=== PATIENT | female | born 1985 | race Caucasian/White ===

== ENCOUNTER 2016-03-01 10:45 | Emergency (ER) | payer OTHER ==
[2016-03-01 10:53] VITALS: BP 138/83
--- NOTE | 2016-03-01 11:04 | ERNOTE ---
ENT HPI Date of Service: 03/01/16 Presenting Symptoms: dental pain Source: patient - Immun/Allergies/Home Medications Immunizations: IMMUNIZATION HX Immunizations Up to Date Yes History of Influenza Vaccine Yes Hx Pneumococcal Vaccination No Allergies/Adverse Reactions: Allergies Allergy/AdvReac Type Severity Reaction Status Date / Time No Known Allergies Allergy Verified 03/01/16 10:53 Home Medications: HOME MEDICATIONS Acetaminophen [Tylenol] 650 mg PO QID PRN #0 tablet 10/09/15 [Last Taken Unknown ] Lamotrigine [Lamictal] 200 mg PO BID #60 tablet 10/09/15 [Last Taken Unknown] risperiDONE [Risperdal] 2 mg PO HS #30 tablet 10/09/15 [Last Taken Unknown] Clindamycin HCl [Cleocin HCl] 300 mg PO QID #30 capsule 03/01/16 [Last Taken Unknown] HYDROcodone/ACETAMINOPHEN [Nakina 5-325] 1 tab PO Q6H PRN #20 tab 03/01/16 [Last Taken Unknown] - History of Present Illness Narrative: pt presents with pain and swelling to the R side of her face, submandibular area , steadily worsening over the past week. She sts that she is scheduled to have her back upper molar removed next week in [place]. Pt had a MRSA infection a month ago. No fever or chills Severity: Present: moderate ENT Location: Present: dental Prearrival Treatment: Present: over the counter meds - ibuprofen Modifying Factors - Improves: Denies: lying down Modifying Factors - Worsens: Reports: lying down Associated Symptoms - ENT: Reports: sore throat, facial pain/swelling, jaw swelling Prior Treament: Reports: recently seen. Denies: currently on antibiotics Review of Systems - Review of Systems Constitutional: Present: no symptoms reported EYE: Present: no symptoms reported ENT: Present: ear pain, sore throat Respiratory: Present: no symptoms reported Cardiology: Present: no symptoms reported Gastrointestinal/Abdominal: Present: no symptoms reported Genitourinary: Present: no symptoms reported Musculoskeletal: Present: no symptoms reported Skin: Present: no symptoms reported Neurological: Present: no symptoms reported Endocrine: Present: no symptoms reported Hematologic/Lymphatic: Present: no symptoms reported Psych: Present: no symptoms reported All Other Systems: All systems neg except as marked - Patient's Past Medical History Patient History - Medical: Anemia, Bipolar, UTI'S, Other Patient History - Cardiac/Respiratory: No pertinent hx Patient History - Cancer: Cervical Patient History - Surgical Procedures: Other - Family History Father Family History - Medical: GERD Grandfather-Maternal Family History - Cardiac/Respiratory: Coronary Heart Disease, CVA/Stroke, Myocardial Infarction Family History - Cancer: Other - cancer Grandmother-Maternal Family History - Medical: Depression Family History - Cancer: Lung Mother Family History - Medical: Depression - Social History Living Situations: home Does anyone smoke in the home?: Yes Smoking Status: Current every day smoker Alcohol Use: none Drug Use: marijuana Physical Exam - Physical Exam General Appearance: Present: alert, mild distress Eye Exam: Normal inspection: bilateral Ears, Nose, Throat: Present: normal pharynx, other - 2 back molars on the R tender to palpation. Mild gum swelling noted. moderate R facial swelling and submandibular adenopathy. Absent: abnormal TM (R) - normal TM, abnormal TM (L) - normal TM Neck: Present: normal inspection, lymphadenopathy (R) Respiratory: Present: no respiratory distress Cardiovascular/Chest: Present: regular rate, rhythm Gastrointestinal/Abdominal: Present: normal bowel sounds Back Exam: Present: normal inspection Extremity Exam: Present: normal inspection Neurological Exam: Present: alert, oriented Skin Exam: Present: normal color ED Progress - Vital Signs Patient's Vital Signs:: I have reviewed the patient's vital signs. Vital Signs: Vital Signs 03/01/16 10:47 Temperature 97.3 C H Pulse Rate 90 Respiratory 12 Rate Blood Pressure 138/83 O2 Sat by Pulse 100 Oximetry - Progress/Reassessment Chief Complaint: Dental Problem Plan - Plan Plan: clindamycin and norco. f/u with oral surgeon in [place] Departure Clinical Impression: Dental abscess - Departure Disposition: Home self-care Condition: Good Referrals: Nick Rodas MD [Primary Care Provider] - Prescriptions: Clindamycin HCl [Cleocin HCl] 300 mg PO QID #30 capsule HYDROcodone/ACETAMINOPHEN [Nakina 5-325] 1 tab PO Q6H PRN #20 tab PRN Reason: Pain
== END 2016-03-01 11:39 | disposition home or self-care (01) ==
LOC: ER 10:45
DX: K04.7 Periapical abscess without sinus (principal); F31.9 Bipolar disorder, unspecified; Z85.41 Personal history of malignant neoplasm of cervix uteri; F17.210 Nicotine dependence, cigarettes, uncomplicated; Z86.14 Personal history of Methicillin resistant Staphylococcus aureus infection

== ENCOUNTER 2016-03-10 07:20 | Emergency (ER) | payer OTHER ==
[2016-03-10] MEDS ORDERED: PROMETHAZINE HCL 50 MG/ML AMPUL IM ONE ×2 (07:30→07:32)
[2016-03-10] MEDS ORDERED: KETOROLAC TROMETHAMINE 60 MG/2 ML VIAL IM ONE ×2 (07:30→07:32)
--- NOTE | 2016-03-10 07:39 | ERNOTE ---
<Maggie Gonzalez - Last Filed: 03/10/16 08:03> Headache ER HPI - General Presenting Symptoms: headache Time Seen by Provider: 03/10/16 07:22 Source: patient Exam Limitations: no limitations - Immun/Allergies/Home Medications Immunizations: IMMUNIZATION HX Immunizations Up to Date Yes History of Influenza Vaccine Yes Hx Pneumococcal Vaccination No Allergies/Adverse Reactions: Allergies No Known Allergies Allergy (Verified 03/01/16 10:53) Home Medications: HOME MEDICATIONS Acetaminophen [Tylenol] 650 mg PO QID PRN #0 tablet 10/09/15 [Last Taken Unknown ] Lamotrigine [Lamictal] 200 mg PO BID #60 tablet 10/09/15 [Last Taken Unknown] risperiDONE [Risperdal] 2 mg PO HS #30 tablet 10/09/15 [Last Taken Unknown] Clindamycin HCl [Cleocin HCl] 300 mg PO QID #30 capsule 03/01/16 [Last Taken Unknown] HYDROcodone/ACETAMINOPHEN [Floyd 5-325] 1 tab PO Q6H PRN #20 tab 03/01/16 [Last Taken Unknown] Cyclobenzaprine HCl [Flexeril] 10 mg PO TID PRN #30 tab 03/10/16 [Last Taken Unknown] Naproxen [Naprosyn] 500 mg PO BID #60 tablet 03/10/16 [Last Taken Unknown] Ondansetron [Zofran Odt] 4 mg PO Q6H PRN #20 tab 03/10/16 [Last Taken Unknown] - History of Present Illness Narrative: Patient has had a mild headache for a couple of days. This morning she woke up with a severe headache and immediately came to the ER. She has no prior history of headaches, denies any head trauma. She is nauseated, but has no vomiting and denies any other symptoms. The pain is mainly in the frontal area, denies any URI symptoms Date (Duration): 03/10/16 Time (Timing): 07:30 Timing of Headache: constant Context Headache: Present: new onset. Absent: recent head injury < 24 hrs ago, recent head injury > 24 hrs Severity Maximum: Present: severe Severity-Currently: Present: severe Headache frequency: Present: no recent headache Modifying Factors - (Worsens): Reports: movement, exposure to light Associated Symptoms: Reports: denies symptoms, nausea. Denies: fever/chills, vomiting, nasal congestion, nasal drainage, numbness/tingling, vision changes, light-headedness, loss of consciousness, neck pain/stiffness Review of Systems - Review of Systems Constitutional: Present: recent illness - was recently seen for tooth infection , still on antibiotics. Absent: fever EYE: Absent: vision changes ENT: Absent: nose congestion, nasal drainage, sore throat Respiratory: Absent: shortness of breath, cough Cardiology: Absent: chest pain Gastrointestinal/Abdominal: Present: See HPI, nausea. Absent: diarrhea, abdominal pain Genitourinary: Present: no symptoms reported Musculoskeletal: Absent: muscle stiffness, neck pain Neurological: Present: See HPI, headache. Absent: numbness - Patient's Past Medical History Patient History - Medical: Anemia, Bipolar, UTI'S, Other Patient History - Cardiac/Respiratory: No pertinent hx Patient History - Cancer: Cervical Patient History - Surgical Procedures: Other - Family History Father Family History - Medical: GERD Grandfather-Maternal Family History - Cardiac/Respiratory: Coronary Heart Disease, CVA/Stroke, Myocardial Infarction Family History - Cancer: Other - cancer Grandmother-Maternal Family History - Medical: Depression Family History - Cancer: Lung Mother Family History - Medical: Depression - Social History Living Situations: home Does anyone smoke in the home?: Yes Smoking Status: Current every day smoker Cigarettes Packs Per Day: 0.5 Have you smoked in the past 12 months: Yes Alcohol Use: none Drug Use: marijuana Physical Exam - Physical Exam General Appearance: Present: wd/wn, alert, severe distress - crying, very dramatic, anxious Eye Exam: Normal inspection: bilateral, PERRL: bilateral Ears, Nose, Throat: Present: normal ENT inspection, normal pharynx Neck: Present: normal inspection, nontender, supple, full range of motion. Absent: lymphadenopathy (L), tender posterior midline Respiratory: Present: no respiratory distress, normal breath sounds, no accessory muscle use, lungs clear Cardiovascular/Chest: Present: regular rate, rhythm, no murmur Gastrointestinal/Abdominal: Present: nontender, nondistended, soft Neurological Exam: Present: alert, oriented, no motor/sensory deficits, web design intern II- XII nml as tested Skin Exam: Present: normal color, warm/dry ED Progress - Results and Orders Patient's Lab Results:: I have reviewed the patient's lab results. - Vital Signs Patient's Vital Signs:: I have reviewed the patient's vital signs. Vital Signs: Vital Signs 03/10/16 07:23 Temperature 36.7 C Pulse Rate 112 H Blood Pressure 135/93 O2 Sat by Pulse 98 Oximetry - Progress/Reassessment Chief Complaint: Headache - Transfer of Care Physician Sign Out: Maggie Gonzalez Receiving Physician: Cole Maya Clinical Impression: Headache Qualifiers: Headache type: unspecified Headache chronicity pattern: acute headache Intractability: not intractable Qualified Code(s): R51 - Headache - Departure Disposition: Home self-care Condition: Good Instructions: Tension Headache, [id number] Prescriptions: Cyclobenzaprine HCl [Flexeril] 10 mg PO TID PRN #30 tab PRN Reason: MUSCLE SPASMS Naproxen [Naprosyn] 500 mg PO BID #60 tablet Ondansetron [Zofran Odt] 4 mg PO Q6H PRN #20 tab PRN Reason: Nausea And Vomiting <Cole Maya - Last Filed: 03/10/16 08:38> Headache ER HPI - Immun/Allergies/Home Medications Immunizations: IMMUNIZATION HX Immunizations Up to Date Yes History of Influenza Vaccine Yes Hx Pneumococcal Vaccination No ED Progress - Vital Signs Vital Signs: Vital Signs 03/10/16 03/10/16 07:23 08:02 Temperature 36.7 C Pulse Rate 112 H 83 Respiratory 16 Rate Blood Pressure 135/93 111/62 O2 Sat by Pulse 98 99 Oximetry - Progress/Reassessment Progress:: Improved - Transfer of Care Expected Disposition: Discharge Plan - Plan Plan: Pt has a dental appointment for her tooth infection. Rx for Naproxyn and Flexeril for her headache at home.
[2016-03-10 07:48] LABS: Hematocrit 40.5 % (37.0-47.0); Hemoglobin 13.3 gm/dL (12.5-16.0); Mean Cell Volume 87.7 fl (78-100); Mean Corpuscular Hemoglobin 28.8 pg (27-31); Mean Corpuscular Hgb Conc 32.8 g/dl (32-36); Mean Platelet Volume 9.7 fl (6.0-9.5); Neutrophil # 13.4 K/mm3 (1.3-6.0); Platelet Count 540 K/mm3 (150-450); Red Blood Count 4.62 M/mm3 (4.2-5.4); Red Cell Distribution Width 15.1 % (11.5-14.0); White Blood Count 20.3 K/mm3 (4.0-10.5)
[2016-03-10 08:03] VITALS: BP 111/62
[2016-03-10 08:06] LABS: Albumin * 3.6 gm/dl (3.4-5.0); Anion Gap 13.3 mmol/L (6.8-13.8); BUN/Creatinine Ratio 14.5 (9.0-21.6); Bilirubin, Total 0.3 mg/dL (0.0-1.1); Ca. Corrected For Albumin 9.5 mg/dL (8.4-10.2); Calcium * 9.5 mg/dL (7.9-10.9); Carbon Dioxide 27.6 mmol/L (24-32.6); Potassium 3.9 mmol/L (3.4-4.6); Total Protein 8.2 gm/dL (6.2-8.2)
== END 2016-03-10 08:50 | disposition home or self-care (01) ==
LOC: ER 07:20
DX: R51 Headache (principal); F17.210 Nicotine dependence, cigarettes, uncomplicated; Z85.41 Personal history of malignant neoplasm of cervix uteri

== ENCOUNTER 2016-08-15 19:22 | Emergency (ER) | payer OTHER ==
--- OUTSIDE RECORDS SUMMARY | 2016-08-15 19:45 | XMS REPORT | Continuity of Care Document ---
:1985 Author Organization [facility] [place] [address] Care Team Providers Name Role Phone Unavailable Primary Care Provider Unavailable Source Comments This disclosure is being made pursuant to the [employer] program and maynot contain all information available regarding this patient.[facility] Active Allergies and Adverse Reactions Not on File Current Medications Be aware that medications may not be up to date as of this document. Alwaysverify current medications with the patient. Not on file Active Problems Not on file Social History Tobacco Use Types Packs/Day Years Used Date Never Assessed Plan of Care Health Maintenance Due Date Last Done Comments Retired-Pertussis Vaccine Adult 01/01/2004 Retired-Tetanus Vaccine Adult 01/01/2004 Pap Smear 2005 Retired-INFLUENZA VACCINE 10/27/2014 Results from Last 3 Months Not on file
[2016-08-15] MEDS ORDERED: LIDOCAINE HCL 20 ML UDC MM ONE (19:58)
[2016-08-15 20:08] VITALS: BP 131/84
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
== END 2016-08-15 20:12 | disposition home or self-care (01) ==
LOC: ER 19:22
DX: J02.9 Acute pharyngitis, unspecified (principal); Z72.0 Tobacco use; Z85.41 Personal history of malignant neoplasm of cervix uteri

== ENCOUNTER 2016-10-27 16:11 | Emergency (ER) | payer OTHER ==
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
[2016-10-27 17:23] LABS: Urine Bilirubin Negative (NEGATIVE); Urine Blood Negative /ul (NEGATIVE); Urine Ketone Negative (NEGATIVE); Urine Nitrite Negative (NEGATIVE); Urine Protein Negative (NEGATIVE); Urine Urobilinogen Normal (NORMAL)
[2016-10-27 17:29] VITALS: BP 128/70
[2016-10-27 17:34] LABS: Urine Appearance Clear; Urine Color Yellow
[2016-10-27 17:35] LABS: Urine Bacteria TRACE; Urine RBC None Seen /hpf (0-5); Urine WBC None Seen /hpf (0-5)
[2016-10-27 17:40] LABS: Cocaine Ur Negative (NEGATIVE); Urine Barbiturate Negative (NEGATIVE); Urine Benzodiazepines Negative (NEGATIVE); Urine Opiates Negative (NEGATIVE); Urine PCP Negative (NEGATIVE); Urine THC Negative (NEGATIVE)
== END 2016-10-27 18:05 | disposition home or self-care (01) ==
LOC: ER 16:11
DX: Z04.6 Encounter for general psychiatric examination, requested by authority (principal); F41.9 Anxiety disorder, unspecified

== ENCOUNTER 2016-12-11 13:51 | Emergency (ER) | payer OTHER ==
[2016-12-11 13:59] VITALS: BP 134/86
--- NOTE | 2016-12-11 14:40 | ERNOTE ---
ENT HPI Date of Service: 12/11/16 Presenting Symptoms: dental pain Time Seen by Provider: 12/11/16 14:08 Source: patient, RN notes reviewed Exam Limitations: no limitations - Immun/Allergies/Home Medications Immunizations: IMMUNIZATION HX Immunizations Up to Date Yes History of Influenza Vaccine Yes Hx Pneumococcal Vaccination No Allergies/Adverse Reactions: Allergies Allergy/AdvReac Type Severity Reaction Status Date / Time No Known Allergies Allergy Verified 12/11/16 13:59 Home Medications: HOME MEDICATIONS Acetaminophen [Tylenol] 650 mg PO QID PRN #0 tablet 10/09/15 [Last Taken Unknown ] lamoTRIgine [Lamictal] 200 mg PO BID 10/27/16 [Last Taken Unknown] - History of Present Illness Narrative: 30 year old female presents to the ED for pain in her right upper jaw due to a broken tooth. This has been going on for a while. She states she cannot get in to a dentist for a month. She reports that she is taking ibuprofen for pain without improvement. She also says the pain is making her anxiety worse. ENT Location: Present: dental Prearrival Treatment: Present: over the counter meds Associated Symptoms - ENT: Reports: facial pain/swelling, tooth pain. Denies: fever, poor fluid intake, poor solid intake Prior Treament: Reports: recently seen Review of Systems - Review of Systems Constitutional: Present: See HPI EYE: Present: no symptoms reported ENT: Present: no symptoms reported Respiratory: Present: no symptoms reported Cardiology: Present: no symptoms reported Gastrointestinal/Abdominal: Absent: nausea, vomiting Genitourinary: Present: no symptoms reported Musculoskeletal: Absent: muscle pain, neck pain Skin: Absent: rash, lesions, lumps, change in color Neurological: Absent: headache, dizziness/light-headedness Endocrine: Present: no symptoms reported Hematologic/Lymphatic: Present: no symptoms reported Psych: Present: anxiety - Patient's Past Medical History Patient History - Medical: Anemia, Anxiety, Bipolar, UTI'S Patient History - Cardiac/Respiratory: No pertinent hx Patient History - Cancer: Cervical Patient History - Surgical Procedures: Other Patient History - Other: None - Family History Father Family History - Medical: GERD Grandfather-Maternal Family History - Cardiac/Respiratory: Coronary Heart Disease, CVA/Stroke, Myocardial Infarction Grandmother-Maternal Family History - Medical: Depression Mother Family History - Medical: Depression - Social History Living Situations: home Abuse History: No History of abuse Psych History: Hx of Bipolar Disorder Alcohol Use: none Drug Use: none - Immunizations Immunizations Up to Date: Yes Hx Pneumococcal Vaccination: No History of Influenza Vaccine: Yes Physical Exam - Physical Exam General Appearance: Present: wd/wn, alert, no apparent distress Head Exam: Present: normal inspection. Absent: swelling Ears, Nose, Throat: Present: normal pharynx, other - decayed, fractured right upper posterior molar, no surrounding gingival inflammation. Absent: dry mucous membranes Neck: Present: normal inspection, nontender, supple, full range of motion. Absent: lymphadenopathy (R), lymphadenopathy (L) Respiratory: Present: no respiratory distress, normal breath sounds, no accessory muscle use, lungs clear Cardiovascular/Chest: Present: regular rate, rhythm, no murmur Neurological Exam: Present: alert, oriented, normal mood/affect, no motor/ sensory deficits Skin Exam: Present: normal color, warm/dry ED Progress - Vital Signs Patient's Vital Signs:: I have reviewed the patient's vital signs. Vital Signs: Vital Signs 12/11/16 13:52 Temperature 36.7 C Pulse Rate 108 H Respiratory 14 Rate Blood Pressure 134/86 O2 Sat by Pulse 100 Oximetry - Progress/Reassessment Chief Complaint: Dental Problem Progress:: Unchanged Plan - Plan Plan: Patient informed that she wound be given a rx for antibiotics but not for narcotic pain meds. She then left without her prescription or instructions. Departure Clinical Impression: Tooth ache - Departure Disposition: Against medical advice Condition: Good Referrals: Isma Ordonez MD [Primary Care Provider] -
== END 2016-12-11 14:25 | disposition left against medical advice (07) ==
LOC: ER 13:51
DX: K08.89 Other specified disorders of teeth and supporting structures (principal); D64.9 Anemia, unspecified; F31.70 Bipolar disorder, currently in remission, most recent episode unspecified; Z85.41 Personal history of malignant neoplasm of cervix uteri; Z53.29 Procedure and treatment not carried out because of patient's decision for other reasons

== ENCOUNTER 2017-01-11 12:32 | Emergency (ER) | payer OTHER ==
[2017-01-11 13:03] VITALS: BP 125/73
[2017-01-11] MEDS ORDERED: KETOROLAC TROMETHAMINE 60 MG/2 ML VIAL IM ONE (15:26)
[2017-01-11] MEDS ORDERED: CLINDAMYCIN PHOSPHATE 150 MG/ML VIAL IM ONE (15:27)
[2017-01-11] MEDS ORDERED: LIDOCAINE HCL 20 ML UDC MM ONE (15:27)
--- NOTE | 2017-01-11 15:30 | ERNOTE ---
ENT [facility] Date of Service: 01/11/17 Presenting Symptoms: dental pain Time Seen by Provider: 01/11/17 14:33 Source: patient Exam Limitations: no limitations - Immun/Allergies/Home Medications Immunizations: IMMUNIZATION HX Immunizations Up to Date Yes History of Influenza Vaccine Yes Hx Pneumococcal Vaccination No Allergies/Adverse Reactions: Allergies Allergy/AdvReac Type Severity Reaction Status Date / Time No Known Allergies Allergy Verified 01/11/17 13:04 Home Medications: HOME MEDICATIONS Acetaminophen [Tylenol] 650 mg PO QID PRN #0 tablet 10/09/15 [Last Taken Unknown ] lamoTRIgine [Lamictal] 200 mg PO BID 10/27/16 [Last Taken Unknown] Clindamycin HCl [Cleocin HCl] 300 mg PO Q6H #40 capsule 01/11/17 [Last Taken Unknown] Lidocaine HCl [Lidocaine HCl Viscous 2%] 1 appl MM Q1H #1 btl 01/11/17 [Last Taken Unknown] Naproxen [Naprosyn] 500 mg PO BID PRN #60 tab 01/11/17 [Last Taken Unknown] - History of Present Illness Narrative: Pt. comes in with c/o R maxillary tooth pain for three weeks. Pt. states tath she had an appointment with [facility] dental clinic and missed it so now she has to go to [place]. Pt. states that she has tried Tylenol, Ibuprofen, and heat for the pain without relief. Pt. denies any headache, fever, SOB, CP, NVD, recent illness, alleviating factors, or aggravating factors. Review of Systems - Review of Systems Constitutional: Present: no symptoms reported. Absent: recent illness, fever, chills, weakness, fatigue, malaise EYE: Present: no symptoms reported ENT: Present: other - L maxillary tooth pain Respiratory: Present: no symptoms reported. Absent: shortness of breath, cough , wheezing Cardiology: Present: no symptoms reported. Absent: chest pain, palpitations, edema Gastrointestinal/Abdominal: Present: no symptoms reported. Absent: nausea, vomiting, diarrhea Genitourinary: Present: no symptoms reported. Absent: frequency, decreased urinary output Musculoskeletal: Present: no symptoms reported. Absent: back pain, joint pain Skin: Present: no symptoms reported. Absent: rash, lesions, lumps, change in hair/nails Neurological: Present: no symptoms reported. Absent: headache, dizziness/light- headedness, numbness, tingling All Other Systems: All systems neg except as marked - Patient's Past Medical History Patient History - Medical: Anemia, Anxiety, Bipolar, UTI'S Patient History - Cardiac/Respiratory: No pertinent hx Patient History - Cancer: Cervical Patient History - Surgical Procedures: Other Patient History - Other: None - Family History Father Family History - Medical: GERD Grandfather-Maternal Family History - Cardiac/Respiratory: Coronary Heart Disease, CVA/Stroke, Myocardial Infarction Grandmother-Maternal Family History - Medical: Depression Mother Family History - Medical: Depression - Social History Abuse History: No History of abuse Psych History: Hx of Bipolar Disorder Smoking Status: Current every day smoker - Immunizations Immunizations Up to Date: Yes Hx Pneumococcal Vaccination: No History of Influenza Vaccine: Yes Physical Exam - Physical Exam General Appearance: Present: wd/wn, alert, no apparent distress Head Exam: Present: normal inspection, no evidence of injury Eye Exam: Normal inspection: bilateral, PERRL: bilateral, EOMI: bilateral Ears, Nose, Throat: Present: other - R maxillary dental caries below pulp with ballotable raised lump at gumline 0.3cm in diameter Neck: Present: normal inspection, nontender. Absent: lymphadenopathy (R), lymphadenopathy (L) Respiratory: Present: no respiratory distress, normal breath sounds, no accessory muscle use, chest nontender, lungs clear Cardiovascular/Chest: Present: regular rate, rhythm, no murmur, normal peripheral pulses Gastrointestinal/Abdominal: Present: normal bowel sounds, nontender Back Exam: Present: normal inspection Extremity Exam: Present: normal inspection Neurological Exam: Present: alert, oriented, normal mood/affect, no motor/ sensory deficits Skin Exam: Present: normal color, warm/dry. Absent: pallor, skin rash ED Progress - Vital Signs Patient's Vital Signs:: I have reviewed the patient's vital signs. Vital Signs: Vital Signs 01/11/17 13:00 Temperature 36.5 C Pulse Rate 83 Respiratory 16 Rate Blood Pressure 125/73 O2 Sat by Pulse 100 Oximetry - Progress/Reassessment Chief Complaint: Dental Problem Progress:: Unchanged Departure Clinical Impression: Dental abscess - Departure Disposition: Home self-care Condition: Good Instructions: Dental Abscess, [id number] Additional Instructions: Please follow up with your dentist as planned. Referrals: Isma Ordonez MD [Primary Care Provider] - Prescriptions: Clindamycin HCl [Cleocin HCl] 300 mg PO Q6H #40 capsule Lidocaine HCl [Lidocaine HCl Viscous 2%] 1 appl MM Q1H #1 btl Naproxen [Naprosyn] 500 mg PO BID PRN #60 tab PRN Reason: Pain
== END 2017-01-11 15:45 | disposition home or self-care (01) ==
LOC: ER 12:32
DX: K04.7 Periapical abscess without sinus (principal); Z85.41 Personal history of malignant neoplasm of cervix uteri; F17.200 Nicotine dependence, unspecified, uncomplicated; F31.9 Bipolar disorder, unspecified; Z53.29 Procedure and treatment not carried out because of patient's decision for other reasons

== ENCOUNTER 2019-01-01 08:23 | Inpatient (IN) ==
[2019-01-01] MEDS ORDERED: PENICILLIN G POTASSIUM 5 MILLIONUNT in DEXTROSE 5 % IN WATER 100 ML IV ONE ×2 (08:43)
[2019-01-01] MEDS ORDERED: RINGER'S SOLUTION,LACTATED 1,000 ML IV PRN (08:43)
[2019-01-01] MEDS ORDERED: OXYTOCIN/DEXTROSE 5%-WATER 30 UNITS/500 ML BAG IV ONE ×2 (08:43→11:21)
[2019-01-01] MEDS ORDERED: RINGER'S SOLUTION,LACTATED 1,000 ML IV ONE (08:43)
[2019-01-01 09:03] LABS: Hematocrit 32.8 % (37.0-47.0); Mean Cell Volume 85.6 fl (78-100); Mean Corpuscular Hemoglobin 28.7 pg (27-31); Mean Corpuscular Hgb Conc 33.5 g/dl (32-36); Mean Platelet Volume 10.1 fl (8-12.5); Neutrophil # 20.1 K/mm3 (1.3-6.0); Neutrophil % 86.8 % (42-75.0); Platelet Count 331 K/mm3 (150-450); Red Blood Count 3.83 M/mm3 (4.2-5.4); Red Cell Distribution Width 16.2 % (11.5-14.0); White Blood Count 23.1 K/mm3 (4.0-10.5)
[2019-01-01 09:07] LABS: Total Cells Counted 100
[2019-01-01] MEDS ORDERED: ONDANSETRON HCL/PF 2 MG/ML VIAL IV PRN (09:12)
[2019-01-01] MEDS ORDERED: NALOXONE HCL 1 MG/1 ML SYRG IV PRN (09:12)
[2019-01-01] MEDS ORDERED: BUPIVACAINE HCL/PF 10 ML VIAL ONE (09:14)
[2019-01-01] MEDS ORDERED: fentaNYL CITRATE/PF 50 MCG/ML AMPUL IT SCH (09:15)
[2019-01-01 09:29] LABS: Atypical (Reactive) Lymph 2 % (0-2); Lymphocyte 4 % (20-51); Monocyte 5 % (0-9); Neutrophil 89 % (42-75); Neutrophil # 20.6 K/mm3 (1.3-6.0)
[2019-01-01 09:31] LABS: Anisocytosis 1+; Platelet Estimate Normal (NORMAL)
--- NOTE | 2019-01-01 09:36 | ANES ---
Anesthesia Pre Procedure Eval Vitals/Labs: Last Vital Signs Temp 36.4 C 01/01/19 09:31 Pulse 92 01/01/19 09:31 Resp 22 H 01/01/19 09:31 BP 137/77 01/01/19 09:31 Pulse Ox 99 01/01/19 09:31 HOME MEDICATIONS NK 08/24/18 [Last Taken Unknown] Allergies/Adverse Reactions: Allergies Allergy/AdvReac Type Severity Reaction Status Date / Time No Known Allergies Allergy Verified 08/24/18 02:14 - Planned Procedure Medication List Reviewed:: Yes Allergies Verified: Yes Medical History (Last Reviewed 01/01/19 @ 09:35 by Cole Restrepo CRNA) Bipolar disorder Borderline personality disorder Chlamydia Onset Date: ~2008 Hx MRSA infection Surgical History (Last Reviewed 01/01/19 @ 09:35 by Cole Restrepo CRNA) No pertinent past surgical history Family History (Last Reviewed 01/01/19 @ 09:35 by Cole Restrepo CRNA) Other No pertinent family history - Family Anesthesia History Family History:: no untoward family reactions to anesthesia - Airway/Neck/Teeth Within Normal Limits:: Yes Neck Exam: full range of motion Mallampatti Score: 2 Thyromental (T-M) distance: > 6 cm Mandibulo Hyoid distance: > 3 cm - Respiratory Respiratory Physical: lungs clear Smoking Status: Current every day smoker Discussed smoking cessation including day of surgery: Yes Sleep Apnea currently treated: No Sleep Apnea by current assessment: No - Cardiovascular Tolerate Activity: Fair Heart Sounds: S1 & S2, Regular - Anesthesia Assessment and Plan ASA Class: PS, II, E Anesthesia Type Plan: Spinal Planned difficult intubation/equipment available: No - labor intrathecal
--- NOTE | 2019-01-01 09:37 | ANES ---
Post Anesthesia Discharge - Transfer of Care Transfer of Care handoff given to nurse: Yes - Anesthesia Post Op Note Anesthesia Post Op Note: Care transferred to OB RN
--- NOTE | 2019-01-01 09:37 | ANES ---
Post Anesthesia Assessment - Vital Signs Vitals: Last Vital Signs Temp 36.4 C 01/01/19 09:31 Pulse 92 01/01/19 09:31 Resp 22 H 01/01/19 09:31 BP 137/77 01/01/19 09:31 Pulse Ox 99 01/01/19 09:31 Airway Patency: Normal - Mental Status Level Of Consciousness: Awake - Pain Level Pain Score: 2 - N/V Assessment Nausea/Vomiting Presence: None Dehydration:: No
[2019-01-01 09:48] LABS: Urine Bilirubin Negative (NEGATIVE); Urine Blood Negative /ul (NEGATIVE); Urine Ketone Negative (NEGATIVE); Urine Nitrite Negative (NEGATIVE); Urine Protein Negative (NEGATIVE); Urine Specific Gravity >=1.030 SP.GR. (1.005-1.010); Urine Urobilinogen Normal (NORMAL)
[2019-01-01 10:01] LABS: Urine Appearance Slightly Cloudy (CLEAR); Urine Bacteria TRACE; Urine Color Yellow; Urine RBC None Seen /hpf (0-5); Urine WBC TRACE /hpf (0-5)
[2019-01-01 10:25] LABS: Cocaine Ur Negative (NEGATIVE); Urine Barbiturate Negative (NEGATIVE); Urine Benzodiazepines Negative (NEGATIVE); Urine Opiates Negative (NEGATIVE); Urine PCP Negative (NEGATIVE); Urine THC Positive (NEGATIVE)
--- NOTE | 2019-01-01 10:35 | ANES ---
Anesthesia Procedure Note Procedure Note: ANESTHESIA PROCEDURE NOTE Date of procedure: 01/01/2019. Time of procedure: 0 910. Performed by: Gerry Restrepo CRNA Bioinformatics Assistant: None . Preprocedure diagnosis: Active labor. Post procedure diagnosis: Same. Procedure: Labor intrathecal Indications: Labor analgesia. Findings: Patient is placed in a sitting position and her back was prepped and draped sterilely. 3 mL of 1% lidocaine was injected over the L3-4 interspace. A 25-gauge Pencan spinal needle was used to puncture the dura at the L3-4 interspace. 20 mcg of fentanyl and 2.5 mg of 0.5% preservative-free Marcaine injected intrathecally. Spinal needle was removed intact. EBL: Minimal. Fluids: N/A. Specimen: N/A. Post procedure condition: The patient tolerated the procedure well. No complications were noted. Thank you for this consultation Gerry Restrepo CRNA
--- NOTE | 2019-01-01 11:10 | PN ---
Progess Note - Interim Date: 01/01/19 Time: 11:04 Narrative: 01/01/19 11:04 I was called by RN that the patient was 9 cm dilated and she needed to push and that the patient was feeling a lot of pressure. I came to the bedside and examined the patient. The patient's bladder was noted to be full and thus I cleansed the urethra with betadine. I emptied her bladder with a red rubber. Then heart tones could not be found and thus I placed an FSE to determine what the FHT were. The FHT were in the 50s. I attempted to reduce the cervix and place a vacuum but although the patient's cervix reduced initially it came right back once the vacuum was applied. Therefore, given that the patient was not completely dilated and the head was determined to be too high for a safe vacuum extraction a decision was made to proceed with a STAT delivery. At that moment Dr. Vidal walked in and took over the patient's care.
--- NOTE | 2019-01-01 11:17 | ANES ---
Post Anesthesia Discharge - Transfer of Care Transfer of Care handoff given to nurse: Yes - Discharge from PACU Discharge from PACU when meets criteria: Yes - Awake and comfortable.
[2019-01-01] MEDS ORDERED: IBUPROFEN 800 MG TABLET PO PRN ×2 (11:21→11:27)
[2019-01-01] MEDS ORDERED: oxyCODONE HCL/ACETAMINOPHEN 1 TAB TABLET PO PRN (11:21)
[2019-01-01] MEDS ORDERED: BISACODYL 10 MG SUPP.RECT RC PRN (11:21)
[2019-01-01] MEDS ORDERED: HYDROCORTISONE 30 APPL TUBE TP PRN (11:21)
[2019-01-01] MEDS ORDERED: GLYCERIN/WITCH HAZEL LEAF 40 APPL BOX TP PRN (11:21)
[2019-01-01] MEDS ORDERED: BENZOCAINE/MENTHOL 81 SPRAY CAN TP PRN (11:21)
[2019-01-01] MEDS ORDERED: SENNOSIDES 8.6 MG TABLET PO PRN (11:21)
[2019-01-01] MEDS ORDERED: PROPOFOL VIAL IV ONE (11:32)
[2019-01-01] MEDS ORDERED: SUCCINYLCHOLINE CHLORIDE 20 MG/ML VIAL ONE (11:32)
[2019-01-01] MEDS: IBUPROFEN 800 MG TABLET PO PRN ×2 (11:55→19:19)
--- NOTE | 2019-01-01 12:19 | OR ---
Operative Report - Dictated Report Narrative: 33-year old 7 para 3 at 38 1/7 weeks with insufficient and late onset care from outside facility presents to labor and delivery in active labor dilated to 6/100/0. She progressed rapidly to 8 cm and was transferred to the OR for stat section due to prolonged deceleration in the 60s. I met the OB crew in the OR. As preparation for her stat section was being made the patient aggress to complete and pushed out a viable male at 1054 on 01/01/2019 with Apgars 6 and 9, weighing 3163 g in CHELSIE position with tight nuchal cord x1. Cord clamping was delayed approximately 30 seconds. began crying with cord clamping and was handed off to waiting developer evangelist. Placenta delivered complete, intact, with three vessel cord Estimated blood loss: Less than 50 ml Anesthesia: Intrathecal Lacerations: Left periurethral abrasion with no repair needed.
--- NOTE | 2019-01-01 12:22 | HP ---
Chief Complaint - Chief Complaint Date of Service: 01/01/19 Time of Service: 12:20 Chief Complaint: contractions and LOF History of Present Illness: 33-year old 7 para 3 at 38 1/7 weeks with insufficient and late onset care from outside facility presents to labor and delivery in active labor dilated to 6/100/0. She progressed rapidly to 8 cm and was transferred to the OR for stat section due to prolonged deceleration in the 60s. I met the OB crew in the OR for delivery. Patient complains of LOF - clear since around 0400. 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 A + GBS and Rubella status unknown Medical History (Last Reviewed 01/01/19 @ 12:28 by Carroll Vidal DO) Bipolar disorder Borderline personality disorder Chlamydia Onset Date: ~2008 Hx MRSA infection Surgical History: Surgical History (Last Reviewed 01/01/19 @ 09:35 by Cole Restrepo CRNA) No pertinent past surgical history Family History: Family History (Last Reviewed 01/01/19 @ 09:35 by Cole Restrepo CRNA) Other No pertinent family history Social History: Tobacco: Smoking Status: Current every day smoker Review Of Systems (GEN) - Review of Systems Generalized/Overall Review: Present: No Symptoms Reported EENTM: Present: No Symptoms Reported Respiratory: Present: No Symptoms Reported Cardiac: Present: No Symptoms Reported Abdominal: Present: Abdominal Pain - contractions Genitourinary: Present: Other - Leaking of fluid since 399. Musculoskeletal: Present: No Symptoms Reported Neurological: Present: Anxiety Skin: Present: No Symptoms Reported Immunizations: IMMUNIZATION HX Immunizations Up to Date Yes History of Influenza Vaccine No Hx Pneumococcal Vaccination No Allergies/Adverse Reactions: Allergies Allergy/AdvReac Type Severity Reaction Status Date / Time No Known Allergies Allergy Verified 08/24/18 02:14 Home Medications: HOME MEDICATIONS NK 08/24/18 [Last Taken Unknown] Exam - Exam Vital Signs: Vital Signs - Last Taken Temp 36.4 C 01/01/19 09:31 Pulse 92 01/01/19 09:31 Resp 22 H 01/01/19 09:31 BP 137/77 01/01/19 09:31 Pulse Ox 99 01/01/19 09:31 Constitutional: Present: Alert, Oriented x3, Cooperative, Moderate distress ENT Exam: Present: hearing grossly normal Breasts: Present: Exam deferred Respiratory: Present: lungs clear, no respiratory distress Cardiovascular/Chest: Present: regular rate, rhythm, no edema Abdomen: Present: soft, nontender, no rebound tenderness /Rectal: Present: Other - cervix 6/100/0 Extremity: Present: no pedal edema, no calf tenderness Skin Exam: Present: warm/dry, no cyanosis, pallor Neurologic: Present: alert, oriented x 3, other Appearance: Present: appropriate appearance, appropriate insight Eye contact: Present: cooperative, good eye contact Thoughts: Present: normal thought pattern, normal mood /affect Diagnostic Studies: Abnormal Lab Results 01/01/19 01/01/19 01/01/19 Range/Units 08:55 09:35 09:35 WBC 23.1 H (4.0-10.5) K/mm3 RBC 3.83 L (4.2-5.4) M/mm3 Hgb 11.0 L (12.5-16.0) gm/dL Hct 32.8 L (37.0-47.0) % RDW 16.2 H (11.5-14.0) % Immature Gran % (Auto) 0.50 H (0.001-0.429) % Immature Gran # (Auto) 0.12 H (0.000-0.0310) K/mm3 Neutrophils % 86.8 H (42-75.0) % Neutrophils % (Manual) 89 H (42-75) % Lymphocytes % 6.0 L (20-51) % Lymphocytes % (Manual) 4 L (20-51) % Neutrophils # 20.1 H (1.3-6.0) K/mm3 Neutrophils # (Manual) 20.6 H (1.3-6.0) K/mm3 Lymphocytes # 1.39 L (1.5-3.5) k/mm3 Lymphocytes # (Manual) 0.9 L (1.5-3.5) k/mm3 Monocytes # 1.5 H (0.0-1.0) k/mm3 Monocytes # (Manual) 1.2 H (0.0-1.0) k/mm3 Ur Leukocyte Esterase 25 H (NEGATIVE) /ul Urine WBC Trace H (0-5) /hpf Ur Epithelial Cells 5-10 H (0-5) /hpf Urine Amphetamine Positive H (NEGATIVE) Urine Marijuana (THC) Positive H (NEGATIVE) Laboratory Results WBC 23.1 K/mm3 (4.0-10.5) H 01/01/19 08:55 RBC 3.83 M/mm3 (4.2-5.4) L 01/01/19 08:55 Hgb 11.0 gm/dL (12.5-16.0) L 01/01/19 08:55 Hct 32.8 % (37.0-47.0) L 01/01/19 08:55 MCV 85.6 fl (78-100) 01/01/19 08:55 MCH 28.7 pg (27-31) 01/01/19 08:55 MCHC 33.5 g/dl (32-36) 01/01/19 08:55 RDW 16.2 % (11.5-14.0) H 01/01/19 08:55 Plt Count 331 K/mm3 (150-450) 01/01/19 08:55 MPV 10.1 fl (8-12.5) 01/01/19 08:55 Immature Gran % (Auto) 0.50 % (0.001-0.429) H 01/01/19 08:55 Immature Gran # (Auto) 0.12 K/mm3 (0.000-0.0310) H 01/01/19 08:55 Neutrophils % 86.8 % (42-75.0) H 01/01/19 08:55 Neutrophils % (Manual) 89 % (42-75) H 01/01/19 08:55 Lymphocytes % 6.0 % (20-51) L 01/01/19 08:55 Lymphocytes % (Manual) 4 % (20-51) L 01/01/19 08:55 Monocytes % 6.4 % (0.0-9) 01/01/19 08:55 Monocytes % (Manual) 5 % (0-9) 01/01/19 08:55 Eosinophils % 0.1 % (0.0-3.0) 01/01/19 08:55 Basophils % 0.2 % (0.0-1.0) 01/01/19 08:55 Nucleated RBC % 0.0 k/mm3 (0-1) 01/01/19 08:55 Neutrophils # 20.1 K/mm3 (1.3-6.0) H 01/01/19 08:55 Neutrophils # (Manual) 20.6 K/mm3 (1.3-6.0) H 01/01/19 08:55 Lymphocytes # 1.39 k/mm3 (1.5-3.5) L 01/01/19 08:55 Lymphocytes # (Manual) 0.9 k/mm3 (1.5-3.5) L 01/01/19 08:55 Monocytes # 1.5 k/mm3 (0.0-1.0) H 01/01/19 08:55 Monocytes # (Manual) 1.2 k/mm3 (0.0-1.0) H 01/01/19 08:55 Eosinophils # 0.0 k/mm3 (0.0-0.7) 01/01/19 08:55 Absolute Basophils 0.1 k/mm3 (0.0-0.1) 01/01/19 08:55 Atypic/Reactive Lymphs 2 % (0-2) 01/01/19 08:55 Platelet Estimate Normal (NORMAL) 01/01/19 08:55 Anisocytosis 1+ 01/01/19 08:55 Urine Color Yellow 01/01/19 09:35 Urine Appearance Slightly cloudy (CLEAR) 01/01/19 09:35 Urine pH 6.0 pH (5.0-7.0) 01/01/19 09:35 Ur Specific [place] >=1.030 SP.GR. (1.005-1.010) 01/01/19 09:35 Urine Protein Negative mg/dL (NEGATIVE) 01/01/19 09:35 Urine Glucose (UA) Negative mg/dL (NEGATIVE) 01/01/19 09:35 Urine Ketones Negative mg/dL (NEGATIVE) 01/01/19 09:35 Urine Blood Negative /ul (NEGATIVE) 01/01/19 09:35 Urine Nitrate Negative (NEGATIVE) 01/01/19 09:35 Urine Bilirubin Negative mg/dl (NEGATIVE) 01/01/19 09:35 Urine Urobilinogen Normal EU/dl (NORMAL) 01/01/19 09:35 Ur Leukocyte Esterase 25 /ul (NEGATIVE) H 01/01/19 09:35 Urine RBC None seen /hpf (0-5) 01/01/19 09:35 Urine WBC Trace /hpf (0-5) H 01/01/19 09:35 Ur Epithelial Cells 5-10 /hpf (0-5) H 01/01/19 09:35 Urine Bacteria Trace (NONE) 01/01/19 09:35 Urine Culture Comments Culture to follow 01/01/19 09:35 Urine Opiates Screen Negative (NEGATIVE) 01/01/19 09:35 Barbiturate Screen Negative (NEGATIVE) 01/01/19 09:35 Ur Phencyclidine Scrn Negative (NEGATIVE) 01/01/19 09:35 Urine Amphetamine Positive (NEGATIVE) H 01/01/19 09:35 U Benzodiazepines Scrn Negative (NEGATIVE) 01/01/19 09:35 Urine Cocaine Screen Negative (NEGATIVE) 01/01/19 09:35 Urine Marijuana (THC) Positive (NEGATIVE) H 01/01/19 09:35 Ethyl Alcohol Less than 3.0 mg/dL (0.0-10.0) 01/01/19 08:55 Assessment/Plan - Narrative Narrative: Admitted for management of labor. IV PCN 5 million units given x 1 - continue till delivery. PN labs. DHS consult. - Assessment/Plan (1) Labor established Problem: Acute (2) Insufficient care Problem: Acute Qualifiers: Trimester: third trimester Qualified Code(s): O09.33 - Supervision of with insufficient care, third trimester (3) Late care Problem: Acute (4) Polysubstance (excluding opioids) dependence Problem: Acute (5) Previous group B streptococcus complicating , antepartum Problem: Acute (6) Bipolar 1 disorder Problem: Chronic (7) ADHD (attention deficit hyperactivity disorder) Problem: Chronic Qualifiers: Attention deficit-hyperactivity disorder type: unspecified Qualified Code(s): F90.9 - Attention-deficit hyperactivity disorder, unspecified type
[2019-01-01] MEDS ORDERED: PENICILLIN G POTASSIUM 2.5 MILLIONUNT in DEXTROSE 5 % IN WATER 100 ML IV SCH ×2 (12:45)
[2019-01-01] MEDS: DOCUSATE SODIUM 100 MG CAPSULE PO SCH (21:23)
[2019-01-02] MEDS: IBUPROFEN 800 MG TABLET PO PRN ×2 (00:49→09:32)
[2019-01-02 07:39] VITALS: BP 134/74
--- NOTE | 2019-01-02 09:11 | PN ---
Subjective - Date and Time Seen Date: 01/02/19 Time: 09:04 Subjective Narrative: Pain controlled. Plans on breast-feeding. Wants to be discharged early since baby was transferred to [facility].. Objective - Review of Systems Generalized/Overall Review: Reports: No Symptoms Reported EENTM: Reports: No Symptoms Reported Respiratory: Reports: No Symptoms Reported Cardiac: Reports: No Symptoms Reported Abdominal: Reports: No Symptoms Reported Genitourinary Symptoms: Reports: Other - cramping Musculoskeletal Complaints: Reports: No Symptoms Reported Neurological: Reports: No Symptoms Reported Skin: Reports: No Symptoms Reported Endocrine: Reports: No Symptoms Reported - Vitals Vitals: Last Vital Signs Temp 36.1 C 01/02/19 07:36 Pulse 83 01/02/19 07:36 Resp 18 01/02/19 07:36 BP 134/74 01/02/19 07:36 Pulse Ox 97 01/02/19 07:36 - Abnormal Lab Findings Abnormal Lab Findings: Abnormal Lab Results 01/01/19 01/01/19 01/01/19 Range/Units 08:55 09:35 09:35 WBC 23.1 H (4.0-10.5) K/mm3 RBC 3.83 L (4.2-5.4) M/mm3 Hgb 11.0 L (12.5-16.0) gm/dL Hct 32.8 L (37.0-47.0) % RDW 16.2 H (11.5-14.0) % Immature Gran % (Auto) 0.50 H (0.001-0.429) % Immature Gran # (Auto) 0.12 H (0.000-0.0310) K/mm3 Neutrophils % 86.8 H (42-75.0) % Neutrophils % (Manual) 89 H (42-75) % Lymphocytes % 6.0 L (20-51) % Lymphocytes % (Manual) 4 L (20-51) % Neutrophils # 20.1 H (1.3-6.0) K/mm3 Neutrophils # (Manual) 20.6 H (1.3-6.0) K/mm3 Lymphocytes # 1.39 L (1.5-3.5) k/mm3 Lymphocytes # (Manual) 0.9 L (1.5-3.5) k/mm3 Monocytes # 1.5 H (0.0-1.0) k/mm3 Monocytes # (Manual) 1.2 H (0.0-1.0) k/mm3 Ur Leukocyte Esterase 25 H (NEGATIVE) /ul Urine WBC Trace H (0-5) /hpf Ur Epithelial Cells 5-10 H (0-5) /hpf Urine Amphetamine Positive H (NEGATIVE) Urine Marijuana (THC) Positive H (NEGATIVE) - Exam Constitutional: Present: Alert, Oriented x3, Cooperative, Somnolent ENT Exam: Present: hearing grossly normal Breasts: Present: Exam deferred Respiratory: Present: no respiratory distress Cardiovascular/Chest: Present: regular rate, rhythm Abdomen: Present: soft, nontender, no rebound tenderness /Rectal: Present: Exam deferred Extremity: Present: no calf tenderness, lower extremity edema Skin Exam: Present: normal color, warm/dry, no cyanosis Neurologic: Present: depressed affect Appearance: Present: appropriate appearance Eye contact: Present: cooperative, avoids eye contact Thoughts: Present: normal thought pattern Assessment/Plan Plan Narrative: Patient will be discharged early to be with baby at [facility]. [facility] contacted and will follow-up with patient. Referral made to pychiatry - papers will be filled out and submitted prior to d/c. Pt offerred [facility] referral - declined. F/u in 2 wks. Routine d/c instructions. - Problems/Diagnosis (1) Labor established Problem: Resolved (2) Insufficient care Problem: Acute Qualifiers: Trimester: third trimester Qualified Code(s): O09.33 - Supervision of with insufficient care, third trimester (3) Late care Problem: Acute (4) Polysubstance (excluding opioids) dependence Problem: Acute (5) Previous group B streptococcus complicating , antepartum Problem: Acute (6) Bipolar 1 disorder Problem: Chronic (7) ADHD (attention deficit hyperactivity disorder) Problem: Chronic Qualifiers: Attention deficit-hyperactivity disorder type: unspecified Qualified Code(s): F90.9 - Attention-deficit hyperactivity disorder, unspecified type
[2019-01-02] MEDS: DOCUSATE SODIUM 100 MG CAPSULE PO SCH (09:15)
[2019-01-02 11:37] LABS: Hep B Surface Antigen Confirm DNR
[2019-01-02 12:38] LABS: Hepatitis B Surface Antigen NON-REACTIVE (NON-REACTIVE)
== END 2019-01-02 11:00 | disposition home or self-care (01) | DRG 807 ==
LOC: OB 08:23
PROVIDERS: ADMIT Obstetrics & Gynecology; ATTEND Obstetrics & Gynecology
CPT/HCPCS: 36415; 59025; 80307; 80320; 81001; 85007; 85025; 86592; 86762; 86850; 87081; 87086; 87340; 87389; 87491; 87591; 88307; G0481